=== PATIENT | female | born 1970 | race Caucasian/White ===

== ENCOUNTER 2023-06-10 00:45 | Emergency (ER) | payer OTHER, SELFPAY ==
[2023-06-10] VITALS (16 sets, daily range): BP systolic 94–126; BP diastolic 50–78; BMI 23.3
[2023-06-10] MEDS: NSS 1000 IV (01:27)
[2023-06-10 01:32] LABS: % Basophils 0.7 % (0-2); % Eosinophils 2.6 % (0-6); % Immature Granulocytes 0.3 % (0-0.5); % Lymphocytes 29.2 % (20.5-51.1); % Monocytes 6.9 % (1.7-9.3); % Neutrophils 60.3 % (42.2-75.2); Absolute Basophils 0.1 10^3/uL (0-0.2); Absolute Eosinophils 0.3 10^3/uL (0-0.7); Absolute Lymphocytes 2.9 10^3/uL (1.2-3.4); Absolute Monocytes 0.7 10^3/uL (0.1-0.6); Hematocrit 35.6 % (37.0-47.0); Hemoglobin 12.6 g/dL (12.0-16.0); Mean Corp Hgb Conc. 35.4 g/dL (33.0-37.0); Mean Corpuscular Hgb 34.3 pg (27.0-31.0); Mean Platelet Volume 8.7 fL (7.4-10.4); Nucleated Red Blood Cells % 0 %; Platelet Count 254 10^3/uL (130-400); Red Blood Cell Count 3.67 10^6/uL (4.20-5.40); Red Cell Dist. Width 14.5 % (11.5-14.5)
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
[2023-06-10 01:41] LABS: HCG, Serum Qualitative Screen Negative
[2023-06-10 01:45] LABS: ALT (SGPT) 147 U/L (0-35); AST (SGOT) 111 U/L (14-36); Alcohol 202 mg/dl; Alkaline Phosphatase 128 U/L (38-126); Blood Urea Nitrogen < 2 mg/dl (7-17); Carbon Dioxide 19 mmol/L (22-30); Chloride 106 mmol/L (98-107); Estimated Creatinine Clearance 89 ml/min; Glucose 95 mg/dl (70-99); Potassium 3.3 mmol/L (3.5-5.1); Sodium 130 mmol/L (135-145); Total Bilirubin 0.6 mg/dl (0.2-1.3); eGFR > 60.00
[2023-06-10 01:50] LABS: COVID-19 Antigen Negative (Negative)
--- NOTE | 2023-06-10 03:00 | EDRN ---
Report received, patient is sleeping, 1:1 remains at this time, will continue to monitor
[2023-06-10 03:27] LABS: Amphetamines Negative (Negative); Barbiturates Negative (Negative); Benzodiazepines Positive (Negative); Buprenorphine Negative (Negative); Cocaine Negative (Negative); Marijuana Negative (Negative); Methadone Negative (Negative); Methamphetamines Negative (Negative); Opiates Negative (Negative); Phencyclidine Negative (Negative); Tricyclic Antidepressants Negative (Negative)
[2023-06-10 03:36] LABS: Fentanyl, Urine Negative (Negative)
[2023-06-10] MEDS: CALCIUM GLUCONATE 10% 10 ML 4.65000000000000036 MEQ IV (04:06)
--- NOTE | 2023-06-10 06:31 | EDRN ---
Patient remains asleep at this time, 1:1 remains
--- NOTE | 2023-06-10 06:46 | EDRN ---
Spoke with crisis, they are going to have the licensed investment sales assistant see her in the morning, 1:[address]
--- NOTE | 2023-06-10 09:11 | CM ---
CM consult for suicide risk
Pt being followed by crisis
CM will remain available for dc planning as needed
--- NOTE | 2023-06-10 14:16 | W.PN.UPDATE ---
Update Note
Progress Note Update
Pt seen, reviewed 302/Crisis eval. Pt reportedly took OD on Xanax and alcohol. Crisis staff reports pt was talking earlier and stated she had suicidal intent with OD. Pt currently sleeping soundly, not waking to verbal stimuli. Pt allegedly took
'her Xanax' though there is no record of her filling prescription [place]an[place]. Also noted to have taken dtr's Xanax. Alcohol level on admission 202.
Imp: Unspecified Depressive d/o, on 302 for OD on benzo along with alcohol
Alcohol use d/o, unspecified; risk for withdrawal unclear
Rec: inpatient psychiatric/dual dx unit placement on 302
Will order Ativan prn. Will follow
== END 2023-06-10 21:31 ==
LOC: EMR 00:45
PROVIDERS: Clinical Nurse Specialist Family Health; CONSULT PHYSICIAN Psychiatry & Neurology Psychiatry; EMERGENCY PHYSICIAN Emergency Medicine
DX: T42.4X2A Poisoning by benzodiazepines, intentional self-harm, initial encounter (principal); F10.129 Alcohol abuse with intoxication, unspecified; F32.A Depression, unspecified; F17.200 Nicotine dependence, unspecified, uncomplicated
CPT/HCPCS: 99285; 96374; 96361; 80053; 80306; 80307; 82077; 84703; 85025; 87811; 93005